=== PATIENT | male | born 1950 | race Caucasian/White ===

== ENCOUNTER → 2016-05-01 | Outpatient (CLI) | payer BC ==
--- NOTE | 2016-05-02 09:08 | MR ---
EXAMINATION: MRI lumbar spine HISTORY: Intravertebral disc degeneration COMPARISON: Radiographs dated 04/05/2016 TECHNIQUE: Multiplanar and multisequence images obtained of the lumbar spine without contrast. FINDINGS: There is grade 1 anterolisthesis of L3 on L4 otherwise the lumbar spinal alignment appears normal. The vertebral body heights appear maintained. Mild endplate edema is noted from L3 to L5. T he SI joints are symmetric. The distal spinal cord appears normal and the conus terminates at L1-L2. The visualized retroperitoneal structures appear unremarkable. T12-L1: Unremarkable. L1-L2: Small diffuse disc bulge without significant spinal canal stenosis. Minimal left neural raymond inal stenosis. L2-L3: Small diffuse disc bulge with mild facet and ligamentum flavum hypertrophy. Mild bilateral ne ural foraminal stenosis. L3-L4: Large diffuse disc bulge with facet and ligamentum flavum hypertrophy resulting in severe spi nal canal stenosis. Moderate to severe bilateral neural foraminal stenosis is noted. L4-L5: Small diffuse disc bulge with significant spinal canal stenosis. There is moderate left and m ild right neural foraminal stenosis. L5-S1: Small diffuse disc bulge without significant spinal canal stenosis. Moderate to severe bilate ral neural foraminal stenosis. IMPRESSION: 1. Multilevel degenerative disc disease most notable at L3-L4 with severe spinal canal stenosis. Ind ividual details above.
== END ==
LOC: MW.MRI 14:15
PROVIDERS: ATTEND Internal Medicine
DX: M51.36 Other intervertebral disc degeneration, lumbar region (principal); M48.06 Spinal stenosis, lumbar region
CPT/HCPCS: 72148; 72148-26

== ENCOUNTER 2016-05-08 09:43 | Day surgery (SDC) | payer BC ==
[~2016-05-08 09:43] MED LIST: Lactated Ringers 1,000 ML IV SCH; Midazolam 1 MG/ML 2 ML SDV ONE; Propofol 200 MG/20 ML SDV ONE; fentaNYL 100 MCG/2 ML SDV ONE
--- NOTE | 2016-05-08 10:18 | PCM.PREANE ---
Preanesthetic Assessment - ANESTHESIA/TRANSFUSION/FAMILY HX Anesthesia/Transfusion History: Prior Anesthesia Family History of Anesthesia Reaction: No - REVIEW OF SYSTEMS Constitutional: Reports: no symptoms TREASURER: Reports: no symptoms Respiratory: Reports: no symptoms Cardiovascular: Reports: no symptoms GI: Reports: no symptoms - PHYSICAL ASSESSMENT O2 Sat by Pulse Oximetry: 98 RR: 16 Vital Signs: Last Vital Signs Temp 36.6 C 05/08/16 09:59 Pulse 78 05/08/16 09:59 Resp 16 05/08/16 09:59 BP 107/72 05/08/16 09:59 Pulse Ox 98 05/08/16 09:59 Height: 1.78 m Weight: 87.09 kg ASA Class: 2 Mental Status: alert & oriented x3 Airway Class: Mallampati = 2 ROM/Head Extension: full Respiratory Status: lungs clear to auscultation bilaterally Cardiovascular Status: regular rate & rhythm, normal S1, S2 - ALLERGIES Allergies/Adverse Reactions: Allergies Allergy/AdvReac Type Severity Reaction Status Date / Time No Known Allergies Allergy Verified 05/03/16 09:25 - BLOOD Blood Available: No - ANESTHESIA PLAN Preop Beta Elma: No Anesthesia Type Planned: MAC - ACKNOWLEDGEMENTS Pt an appropriate candidate for the planned anesthesia: Yes Alternatives and risks of anesthesia discussed w pt/guardian: Yes Pt/Guardian understands and agree with anesthesia plan: Yes PreAnesthesia Questionnaire Cardiovascular History: Reports: Hypertension Musculoskeletal History: Reports: Arthritis, Back pain, chronic Neurological History: Reports: Other (see below) Other Neuro History: neurogenic claudication - Past Surgical History Head Surgeries/Procedures: Reports: None Neurological Surgical History: Reports: Lumbar spine Other Neurological Surgeries/Procedures: hx back surgery for ruptured disc - SUBSTANCE USE Smoking Status *Q: Former Smoker Tobacco Use Within Last Twelve Months: No Recreational Drug Use History: No - HOME MEDS Home Medications: Home Meds Celecoxib 200 mg PO DAILY 05/03/16 [History] Lisinopril/Hydrochlorothiazide [Lisinopril-Hctz 20-25 mg Tab] 1 tab PO DAILY 03/21 [History] traMADol HCl [Tramadol HCl] 1 tab PO BID PRN 05/03/16 [History] - CURRENT (IN HOUSE) MEDS Current Meds: Current Medications Lactated Ringer's (Ringers, Lactated) 1,000 mls @ 125 mls/hr IV ASDIRECTED ANDREIA Last Admin: 05/08/16 10:00 Dose: 125 mls/hr Discontinued Medications Fentanyl (Sublimaze) Confirm Administered Dose 100 mcg .ROUTE .STK-MED ONE Stop: 05/08/16 08:22 Midazolam HCl (Versed 1 Mg/Ml) Confirm Administered Dose 2 mg .ROUTE .STK-MED ONE Stop: 05/08/16 08:22 Propofol (Diprivan 20 Ml) Confirm Administered Dose 400 mg .ROUTE .STK-MED ONE Stop: 05/08/16 08:22
--- NOTE | 2016-05-08 12:13 | PCM.OPNOTE ---
- General Post-Op/Procedure Note Date of Surgery/Procedure: 05/08/16 Operative Procedure(s): Colonoscopy Pre Op Diagnosis: Desire for colorectal cancer screening Post-Op Diagnosis: Minimal sigmoid diverticulosis Anesthesia Technique: MAC (ASA II) Primary Surgeon: Faisal Santiago State Fire Marshal: Louise Ansari Condition: Good Free Text/Narrative:: Dictation [id number]
--- NOTE | 2016-05-08 12:14 | PCM.POSTAN ---
POST ANESTHESIA ASSESSMENT - MENTAL STATUS Mental Status: alert, oriented - RESPIRATORY Respiratory Status: respiratory rate WNL - CARDIOVASCULAR CV Status: pulse rate WNL - GASTROINTESTINAL GI Status: no symptoms - POST OP HYDRATION Hydration Status: adequate & stable
[2016-05-08] MEDS ORDERED: Lactated Ringers 1,000 ML IV SCH (12:15)
--- NOTE | 2016-05-08 12:15 | PCM48HPAN ---
Post Anesthesia Note - EVALUATION WITHIN 48HRS OF ANESTHETIC Vital Signs in Normal Range: Yes Patient Participated in Evaluation: Yes Respiratory Function Stable: Yes Airway Patent: Yes Cardiovascular Function Stable: Yes Hydration Status Stable: Yes Pain Control Satisfactory: Yes Nausea and Vomiting Control Satisfactory: Yes Mental Status Recovered: Yes
[2016-05-08 12:55] VITALS: BP 81/60
--- NOTE | 2016-05-08 20:05 | OR ---
SURGEON: Faisal Santiago M.D. DATE OF PROCEDURE: 05/08/2016 OPERATION PERFORMED: Colonoscopy. ANESTHESIA: MAC. ASA CLASSIFICATION: II. VENTILATION WORKER: Dr. Ansari. PREOPERATIVE DIAGNOSIS: Desire for colorectal cancer screening. POSTOPERATIVE DIAGNOSES: 1. No evidence of neoplasia. 2. Mild sigmoid diverticulosis. DESCRIPTION OF PROCEDURE: The patient was taken to the endoscopy room, positioned on the endoscopy table in the left lateral decubitus position. Time-out was called for appropriate identification of the patient and procedure. Monitored anesthesia care was provided. The colonoscope was inserted into the rectum and advanced with minimal difficulty to the cecum where the colonoscope was retroflexed to visualize the ascending colon from below. The colonoscope was then straightened and slowly withdrawn. Cecum was identified by internal landmarks and external pressure. The cecum, ascending colon, hepatic flexure, transverse colon, splenic flexure, descending colon, and sigmoid colon showed no tumors, polyps, diverticula, or angiodysplasia. A couple of small diverticula were noted in the sigmoid colon. No stricture, spasm, or bleeding was noted. No sigmoid polyps were encountered. Once the colonoscope was withdrawn to the rectum, it was retroflexed to visualize the anal orifice from above. No tumors, polyps, or acute hemorrhoidal changes were noted. There were some minor chronic changes. The colonoscope was then straightened, the rectum aspirated, and the colonoscope removed. The patient tolerated the procedure well and was taken to recovery room in stable condition. ZOFIA / IMTIAZ /[id number]
== END 2016-05-08 13:10 | disposition home or self-care (01) ==
LOC: MW.SDS 09:43
PROVIDERS: ATTEND Surgery
PROC: 0DJD8ZZ Inspection of Lower Intestinal Tract, Via Natural or Artificial Opening Endoscopic (ICD-10-PCS; principal; 2016-05-08)
DX: Z12.11 Encounter for screening for malignant neoplasm of colon (principal); K57.30 Diverticulosis of large intestine without perforation or abscess without bleeding; K64.9 Unspecified hemorrhoids; G89.29 Other chronic pain; M54.9 Dorsalgia, unspecified; M51.36 Other intervertebral disc degeneration, lumbar region; I10 Essential (primary) hypertension; Z79.899 Other long term (current) drug therapy; Z98.890 Other specified postprocedural states; Z87.891 Personal history of nicotine dependence
CPT/HCPCS: 45378; J2250; J3010; J7120; J2704

== ENCOUNTER → 2016-07-19 | Outpatient (CLI) | payer BC ==
--- NOTE | 2016-07-19 13:09 | CR ---
EXAMINATION: Lumbar spine HISTORY: Back pain COMPARISON: MRI dated 05/01/2016 TECHNIQUE: Flexion and extension lateral images FINDINGS: There is grade 1 anterolisthesis of L3 on L4 most prominent with flexion. Otherwise the pablo mbar spinal alignment appears normal. The vertebral body heights are grossly maintained. Moderate fa cet hypertrophy is noted extending from L3 to S1. No fracture or acute osseous abnormality. Bone min eralization appears normal to osteopenic. IMPRESSION: Moderate degenerative changes with grade 1 anterolisthesis of L3 on L4.
== END ==
LOC: MW.DI 08:27
PROVIDERS: ATTEND Neurological Surgery
DX: M54.5 Low back pain (principal); M47.816 Spondylosis without myelopathy or radiculopathy, lumbar region
CPT/HCPCS: 72100; 72100-26

== ENCOUNTER 2017-09-01 17:16 | Observation (INO) | payer BC, OTHER ==
[2017-09-01] MEDS ORDERED: Famotidine 20 MG/2 ML SDV IVPUSH ONE (17:25)
[2017-09-01] MEDS ORDERED: Aspirin 81 MG Tab.Chew PO ONE (17:25)
[2017-09-01] MEDS ORDERED: Sodium Chloride 0.9% 2.5 ML Syringe FLUSH PRN (17:25)
[2017-09-01] MEDS ORDERED: Nitroglycerin 0.4 MG Tab.SL SL ONE (17:25)
[2017-09-01] MEDS ORDERED: Sodium Chloride 0.9% 10 ML Syringe FLUSH PRN (17:25)
[2017-09-01] MEDS ORDERED: Sodium Chloride 0.9% 1,000 ML IV ONE (17:25)
--- NOTE | 2017-09-01 17:28 | EDM.PDOC ---
ED HPI GENERAL MEDICAL PROBLEM - General Chief Complaint: Chest Pain Stated Complaint: CHEST PAIN Time Seen by Provider: 09/01/17 17:25 Source of Information: Reports: Patient History Limitations: Reports: No Limitations - History of Present Illness INITIAL COMMENTS - FREE TEXT/NARRATIVE: HISTORY AND PHYSICAL: []66-year-old male presenting with chest pain that is midsternal History of Present Illness: []Patient stated this pain started this morning he took one nitroglycerin without any relief when he took a second nitroglycerin about 20 minutes later he had some relief has a headache from the nitroglycerin. He just feels fatigued now. Perhaps an ache. Pain at worst was a 4/10 now maybe 1. Review of Systems: As per history of present illness and below otherwise all systems reviewed and negative. Past medical history: As per history of present illness and as reviewed below otherwise noncontributory. Surgical history: As per history of present illness and as reviewed below otherwise noncontributory. Social history: No reported history of drug or alcohol abuse. Family history: As per history of present illness and as reviewed below otherwise noncontributory. Physical exam: Alert and oriented man answers questions appropriately in full sentences no shortness breath noted on examination. Nontoxic in appearance HEENT: Atraumatic, normocehpalic, pupils reactive, negative for conjunctival pallor or scleral icterus, mucous membranes moist, throat clear, neck supple, nontender, trachea midline. Lungs: Clear to auscultation, breath sounds equal bilaterally, chest non tender. Heart: S1S2, regular, negative for clicks, rubs, or JVD. Abdomen: Soft, nondistended, nontender. Negative for masses or hepatossplenmegaly. Negative for costovertebral tenderness. Pelvis: Stable nontender. Genitourinary: Deferred. Rectal: Deferred Extremities: Atraumatic, negative for cords or calf pain. Neurovascular unremarkable. Neuro: Awake, alert, oriented. Cranial nerves II through XII unremarkable. Cerebellum unremarkable. Motor and sensory unremarkable throughout. Exam nonfocal. is at bedside. Discussed case with Dr. Cannon who accepted patient for observation on telemetry unit and creatinine are elevated from one year ago Diagnostics: []CBC CMP troponin amylase lipase PT/INR chest x-ray Therapeutics: []1 L normal saline Nitro-Bid Impression: []Chest pain Renal injury Plan: []Refer to observation Definitive disposition and diagnosis as appropriate pending reevaluation and review of above. Onset: Today, Sudden Duration: Hour(s): Location: Reports: Chest Quality: Reports: Ache Severity: Moderate Improves with: Reports: None Worsens with: Reports: None Associated Symptoms: Reports: Chest Pain Chest Pain Score (Numeric/FACES): 4 - Related Data Allergies Allergy/AdvReac Type Severity Reaction Status Date / Time No Known Allergies Allergy Verified 05/03/16 09:25 Home Meds: Home Meds Celecoxib 200 mg PO DAILY 05/03/16 [History] Lisinopril/Hydrochlorothiazide [Lisinopril-Hctz 20-25 mg Tab] 1 tab PO DAILY 03/21 [History] traMADol HCl [Tramadol HCl] 1 tab PO BID PRN 05/03/16 [History] Past Medical History Cardiovascular History: Reports: Hypertension Musculoskeletal History: Reports: Arthritis, Back Pain, Chronic Neurological History: Reports: Other (See Below) Other Neuro History: neurogenic claudication - Past Surgical History Neurological Surgical History: Reports: Lumbar Spine ED ROS GENERAL - Review of Systems Review Of Systems: ROS reveals no pertinent complaints other than HPI. ED EXAM, GENERAL - Physical Exam Exam: See Below (See dictation) EKG INTERPRETATION EKG Date: 09/01/17 Rhythm: NSR Comparison: No Change Course - Vital Signs Last Recorded V/S: Last Vital Signs Temp 36.1 C 09/01/17 17:24 Pulse 98 09/01/17 17:24 Resp 18 09/01/17 17:24 BP 105/65 09/01/17 17:24 Pulse Ox 96 09/01/17 17:25 - Orders/Labs/Meds Orders: Active Orders 24 hr Category Date Time Status Patient Status [ADT] Stat ADT 09/01/17 19:02 Ordered Cardiac Monitoring [RC] . DIRECTED Care 09/01/17 17:25 Active EKG Documentation Completion [RC] STAT Care 09/01/17 17:26 Active Oxygen Therapy [RC] ASDIRECTED Care 09/01/17 17:25 Active Chest 1V Frontal [CR] Stat Exams 09/01/17 17:25 Taken INR,PT,PROTHROMBIN TIME [COAG] Stat Lab 09/01/17 17:41 Received UA W/MICROSCOPIC [URIN] Stat Lab 09/01/17 17:25 Ordered Sodium Chloride 0.9% [Saline Flush] Med 09/01/17 17:25 Active 10 ml FLUSH ASDIRECTED PRN Sodium Chloride 0.9% [Saline Flush] Med 09/01/17 17:25 Active 2.5 ml FLUSH ASDIRECTED PRN Saline Lock Insert [OM.PC] Stat Oth 09/01/17 17:25 Ordered Medication Orders Sodium Chloride (Saline Flush) 10 ml FLUSH ASDIRECTED PRN PRN Reason: Keep Vein Open Last Admin: 09/01/17 17:47 Dose: 10 ml Sodium Chloride (Saline Flush) 2.5 ml FLUSH ASDIRECTED PRN PRN Reason: Keep Vein Open Last Admin: 09/01/17 17:47 Dose: 2.5 ml Labs: Laboratory Tests 09/01/17 09/01/17 Range/Units 17:41 17:41 WBC 6.93 (4.0-11.0) K/uL RBC 3.99 L (4.50-5.90) M/uL Hgb 11.9 L (13.0-17.0) g/dL Hct 35.8 L (38.0-50.0) % MCV 89.7 (80.0-98.0) fL MCH 29.8 (27.0-32.0) pg MCHC 33.2 (31.0-37.0) g/dL RDW Std Deviation 42.9 (28.0-62.0) fl RDW Coeff of Mela 13 (11.0-15.0) % Plt Count 244 (150-400) K/uL MPV 9.40 (7.40-12.00) fL Neut % (Auto) 68.2 (48.0-80.0) % Lymph % (Auto) 23.2 (16.0-40.0) % Beaver % (Auto) 5.5 (0.0-15.0) % Eos % (Auto) 2.7 (0.0-7.0) % Baso % (Auto) 0.4 (0.0-1.5) % Neut # (Auto) 4.7 (1.4-5.7) K/uL Lymph # (Auto) 1.6 (0.6-2.4) K/uL Beaver # (Auto) 0.4 (0.0-0.8) K/uL Eos # (Auto) 0.2 (0.0-0.7) K/uL Baso # (Auto) 0.0 (0.0-0.1) K/uL Nucleated RBC % 0.0 /100WBC Nucleated RBCs # 0 K/uL Sodium 141 (136-148) mmol/L Potassium 4.3 (3.5-5.1) mmol/L Chloride 105 (98-107) mmol/L Carbon Dioxide 24.7 (21.0-32.0) mmol/L BUN 59 H (7.0-18.0) mg/dL Creatinine 3.2 H (0.8-1.3) mg/dL Est Cr Clr Drug Dosing 24.08 mL/min Estimated GFR (MDRD) 19.7 ml/min Glucose 160 H (74-106) mg/dL Calcium 9.0 (8.5-10.1) mg/dL Total Bilirubin 0.6 (0.2-1.0) mg/dL AST 16 (15-37) IU/L ALT 28 (14-63) IU/L Alkaline Phosphatase 51 (46-116) U/L Troponin I < 0.050 (0.000-0.056) ng/mL Total Protein 6.8 (6.4-8.2) g/dL Albumin 3.9 (3.4-5.0) g/dL Globulin 2.9 (2.0-3.5) g/dL Albumin/Globulin Ratio 1.3 (1.3-2.8) Amylase 50 (25-115) U/L Lipase 274 (73-393) U/L Meds: Medications Generic Name Dose Route Start Last Admin Trade Name Freq PRN Reason Stop Dose Admin Sodium Chloride 10 ml 09/01/17 17:25 09/01/17 17:47 Saline Flush FLUSH 10 ml ASDIRECTED PRN Administration Keep Vein Open Sodium Chloride 2.5 ml 09/01/17 17:25 09/01/17 17:47 Saline Flush FLUSH 2.5 ml ASDIRECTED PRN Administration Keep Vein Open Discontinued Medications Generic Name Dose Route Start Last Admin Trade Name Freq PRN Reason Stop Dose Admin Acetaminophen 650 mg 09/01/17 17:51 09/01/17 17:54 Tylenol PO 09/01/17 17:52 Not Given NOW ONE Aspirin 324 mg 09/01/17 17:25 09/01/17 17:46 Aspirin PO 09/01/17 17:26 324 mg ONETIME ONE Administration Famotidine 20 mg 09/01/17 17:25 09/01/17 17:46 Pepcid IVPUSH 09/01/17 17:26 20 mg ONETIME ONE Administration Sodium Chloride 1,000 mls @ 999 mls/hr 09/01/17 17:25 09/01/17 17:46 Normal Saline IV 09/01/17 18:25 999 mls/hr .Bolus ONE Administration Nitroglycerin 0.4 mg 09/01/17 17:25 Nitrostat SL 09/01/17 17:26 ONETIME ONE Nitroglycerin 1 gm 09/01/17 17:47 09/01/17 17:53 Nitro-Bid 2% TOP 09/01/17 17:48 1 gm ONETIME ONE Administration Departure - Departure Time of Disposition: 19:05 Disposition: Refer to Observation Condition: Good Clinical Impression: Chest pain Qualifiers: Chest pain type: unspecified Qualified Code(s): R07.9 - Chest pain, unspecified Renal injury Qualifiers: Encounter type: initial encounter Laterality: unspecified laterality Qualified Code(s): S37.009A - Unspecified injury of unspecified kidney, initial encounter Referrals: PCP,None [Primary Care Provider] - Forms: ED Department Discharge - My Orders Last 24 Hours: My Active Orders 09/01/17 17:25 Cardiac Monitoring [RC] . DIRECTED Oxygen Therapy [RC] ASDIRECTED Chest 1V Frontal [CR] Stat UA W/MICROSCOPIC [URIN] Stat Sodium Chloride 0.9% [Saline Flush] 10 ml FLUSH ASDIRECTED PRN Sodium Chloride 0.9% [Saline Flush] 2.5 ml FLUSH ASDIRECTED PRN Saline Lock Insert [OM.PC] Stat 09/01/17 17:26 EKG Documentation Completion [RC] STAT 09/01/17 17:41 INR,PT,PROTHROMBIN TIME [COAG] Stat 09/01/17 19:02 Patient Status [ADT] Stat - Assessment/Plan Last 24 Hours: My Active Orders 09/01/17 17:25 Cardiac Monitoring [RC] . DIRECTED Oxygen Therapy [RC] ASDIRECTED Chest 1V Frontal [CR] Stat UA W/MICROSCOPIC [URIN] Stat Sodium Chloride 0.9% [Saline Flush] 10 ml FLUSH ASDIRECTED PRN Sodium Chloride 0.9% [Saline Flush] 2.5 ml FLUSH ASDIRECTED PRN Saline Lock Insert [OM.PC] Stat 09/01/17 17:26 EKG Documentation Completion [RC] STAT 09/01/17 17:41 INR,PT,PROTHROMBIN TIME [COAG] Stat 09/01/17 19:02 Patient Status [ADT] Stat
[2017-09-01] MEDS ORDERED: Nitroglycerin 2% Oint 1 GM UD Packet TOP ONE (17:47)
[2017-09-01] MEDS ORDERED: Acetaminophen 325 MG Tab PO ONE (17:51)
[2017-09-01 18:10] LABS: CHLORIDE,CL 105 mmol/L (98-107); SODIUM,NA 141 mmol/L (136-148)
--- NOTE | 2017-09-01 20:12 | PCM.HP ---
H&P History of Present Illness - General Date of Service: 09/01/17 Admit Problem/Dx: Admission Diagnosis/Problem Admission Diagnosis/Problem Chest pain - History of Present Illness Initial Comments - Free Text/Narative: 66 yo male with pmh of HTN who woke up this morning with fatigue and mild chest disomfort. The sensation lasted a few hours. 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 The pain had gone away but he took two nitros to see if it would help his fatigue. He then went to the ED. Initial EKG and cardiac enzymes did not show signs of ischemia. His creatinine was 3.2 and BUN 59. His renal function was normal 8 months ago. He reports chronic back pain which he takes daily tramadol and an occasional aleve. He denies any overexertion or exposure to heat at work and reports he drinks plenty of water. Chest Pain Score (Numeric/FACES): 4 - Related Data Allergies/Adverse Reactions: Allergies Allergy/AdvReac Type Severity Reaction Status Date / Time No Known Allergies Allergy Verified 05/03/16 09:25 Home Medications: Home Meds traMADol HCl [Tramadol HCl] 1 tab PO Q6H PRN 05/03/16 [History] Past Medical History Cardiovascular History: Reports: Hypertension Musculoskeletal History: Reports: Arthritis, Back Pain, Chronic Neurological History: Reports: Other (See Below) Other Neuro History: neurogenic claudication - Past Surgical History Neurological Surgical History: Reports: Lumbar Spine Social & Family History - Family History Family Medical History: Noncontributory - Tobacco Use Smoking Status *Q: Never Smoker - Caffeine Use Caffeine Use: Reports: Coffee - Alcohol Use Days Per Week of Alcohol Use: 1 Number of Drinks Per Day: 1 Total Drinks Per Week: 1 - Recreational Drug Use Recreational Drug Use: No H&P Review of Systems - Review of Systems: Review Of Systems: ROS reveals no pertinent complaints other than HPI. Exam - Exam Exam: See Below - Vital Signs Vital Signs: Last Vital Signs Temp 35.8 C 09/01/17 19:46 Pulse 18 L 09/01/17 19:46 Resp 18 09/01/17 19:46 BP 123/85 09/01/17 19:59 Pulse Ox 100 09/01/17 19:46 Weight: 74.843 kg - Exam General: Alert, Oriented HEENT: Conjunctiva Clear Lungs: Clear to Auscultation, Normal Respiratory Effort Cardiovascular: Regular Rate, Regular Rhythm GI/Abdominal Exam: Normal Bowel Sounds, Soft, Non-Tender Skin: Warm, Dry, Intact - Patient Data Lab Results Last 24 hrs: Laboratory Results - last 24 hr 09/01/17 09/01/17 09/01/17 Range/Units 17:41 17:41 17:41 WBC 6.93 (4.0-11.0) K/uL RBC 3.99 L (4.50-5.90) M/uL Hgb 11.9 L (13.0-17.0) g/dL Hct 35.8 L (38.0-50.0) % MCV 89.7 (80.0-98.0) fL MCH 29.8 (27.0-32.0) pg MCHC 33.2 (31.0-37.0) g/dL RDW Std Deviation 42.9 (28.0-62.0) fl RDW Coeff of Mela 13 (11.0-15.0) % Plt Count 244 (150-400) K/uL MPV 9.40 (7.40-12.00) fL Neut % (Auto) 68.2 (48.0-80.0) % Lymph % (Auto) 23.2 (16.0-40.0) % [place] % (Auto) 5.5 (0.0-15.0) % Eos % (Auto) 2.7 (0.0-7.0) % Baso % (Auto) 0.4 (0.0-1.5) % Neut # (Auto) 4.7 (1.4-5.7) K/uL Lymph # (Auto) 1.6 (0.6-2.4) K/uL [place] # (Auto) 0.4 (0.0-0.8) K/uL Eos # (Auto) 0.2 (0.0-0.7) K/uL Baso # (Auto) 0.0 (0.0-0.1) K/uL Nucleated RBC % 0.0 /100WBC Nucleated RBCs # 0 K/uL INR 1.08 Sodium 141 (136-148) mmol/L Potassium 4.3 (3.5-5.1) mmol/L Chloride 105 (98-107) mmol/L Carbon Dioxide 24.7 (21.0-32.0) mmol/L BUN 59 H (7.0-18.0) mg/dL Creatinine 3.2 H (0.8-1.3) mg/dL Est Cr Clr Drug Dosing 24.08 mL/min Estimated GFR (MDRD) 19.7 ml/min Glucose 160 H (74-106) mg/dL Calcium 9.0 (8.5-10.1) mg/dL Total Bilirubin 0.6 (0.2-1.0) mg/dL AST 16 (15-37) IU/L ALT 28 (14-63) IU/L Alkaline Phosphatase 51 (46-116) U/L Troponin I < 0.050 (0.000-0.056) ng/mL Total Protein 6.8 (6.4-8.2) g/dL Albumin 3.9 (3.4-5.0) g/dL Globulin 2.9 (2.0-3.5) g/dL Albumin/Globulin Ratio 1.3 (1.3-2.8) Amylase 50 (25-115) U/L Lipase 274 (73-393) U/L Urine Color Urine Appearance Urine pH (5.0-8.0) Ur Specific [place] (1.001-1.035) Urine Protein (NEGATIVE) mg/dL Urine Glucose (UA) (NEGATIVE) mg/dL Urine Ketones (NEGATIVE) mg/dL Urine Occult Blood (NEGATIVE) Urine Nitrite (NEGATIVE) Urine Bilirubin (NEGATIVE) Urine Urobilinogen (<2.0) EU/dL Ur Leukocyte Esterase (NEGATIVE) Urine RBC (0-2/HPF) Urine WBC (0-5/HPF) Ur Epithelial Cells (NONE-FEW) Urine Bacteria (NEGATIVE) 09/01/17 Range/Units 18:40 WBC (4.0-11.0) K/uL RBC (4.50-5.90) M/uL Hgb (13.0-17.0) g/dL Hct (38.0-50.0) % MCV (80.0-98.0) fL MCH (27.0-32.0) pg MCHC (31.0-37.0) g/dL RDW Std Deviation (28.0-62.0) fl RDW Coeff of Mela (11.0-15.0) % Plt Count (150-400) K/uL MPV (7.40-12.00) fL Neut % (Auto) (48.0-80.0) % Lymph % (Auto) (16.0-40.0) % Union % (Auto) (0.0-15.0) % Eos % (Auto) (0.0-7.0) % Baso % (Auto) (0.0-1.5) % Neut # (Auto) (1.4-5.7) K/uL Lymph # (Auto) (0.6-2.4) K/uL [place] # (Auto) (0.0-0.8) K/uL Eos # (Auto) (0.0-0.7) K/uL Baso # (Auto) (0.0-0.1) K/uL Nucleated RBC % /100WBC Nucleated RBCs # K/uL INR Sodium (136-148) mmol/L Potassium (3.5-5.1) mmol/L Chloride (98-107) mmol/L Carbon Dioxide (21.0-32.0) mmol/L BUN (7.0-18.0) mg/dL Creatinine (0.8-1.3) mg/dL Est Cr Clr Drug Dosing mL/min Estimated GFR (MDRD) ml/min Glucose (74-106) mg/dL Calcium (8.5-10.1) mg/dL Total Bilirubin (0.2-1.0) mg/dL AST (15-37) IU/L ALT (14-63) IU/L Alkaline Phosphatase (46-116) U/L Troponin I (0.000-0.056) ng/mL Total Protein (6.4-8.2) g/dL Albumin (3.4-5.0) g/dL Globulin (2.0-3.5) g/dL Albumin/Globulin Ratio (1.3-2.8) Amylase (25-115) U/L Lipase (73-393) U/L Urine Color YELLOW Urine Appearance CLEAR Urine pH 5.5 (5.0-8.0) Ur Specific [place] 1.025 (1.001-1.035) Urine Protein NEGATIVE (NEGATIVE) mg/dL Urine Glucose (UA) NEGATIVE (NEGATIVE) mg/dL Urine Ketones NEGATIVE (NEGATIVE) mg/dL Urine Occult Blood NEGATIVE (NEGATIVE) Urine Nitrite NEGATIVE (NEGATIVE) Urine Bilirubin NEGATIVE (NEGATIVE) Urine Urobilinogen 0.2 (<2.0) EU/dL Ur Leukocyte Esterase NEGATIVE (NEGATIVE) Urine RBC 0-1 (0-2/HPF) Urine WBC 0-2 (0-5/HPF) Ur Epithelial Cells RARE (NONE-FEW) Urine Bacteria FEW (NEGATIVE) Result Diagrams: 09/02/17 06:12 09/03/17 07:20 Problem List Initiated/Reviewed/Updated: Yes Orders Last 24hrs: Active Orders 24 hr Category Date Time Status Patient Status [ADT] Stat ADT 09/01/17 19:02 Active Cardiac Monitoring [RC] . DIRECTED Care 09/01/17 17:25 Active Oxygen Therapy [RC] PRN Care 09/01/17 20:06 Ordered Up ad Eveline [RC] ASDIRECTED Care 09/01/17 20:06 Ordered VTE/DVT Education [RC] PER UNIT ROUTINE Care 09/01/17 20:06 Ordered Vital Signs [RC] Q4H Care 09/01/17 20:06 Ordered Regular Diet [DIET] Diet 09/01/17 Breakfast Ordered Chest 1V Frontal [CR] Stat Exams 09/01/17 17:25 Taken BASIC METABOLIC PANEL,BMP [CHEM] AM Lab 09/02/17 05:11 Ordered CBC W/O DIFF,HEMOGRAM [HEME] AM Lab 09/02/17 05:11 Ordered UA W/MICROSCOPIC [URIN] Stat Lab 09/01/17 18:40 Ordered Sodium Chloride 0.9% [Saline Flush] Med 09/01/17 17:25 Active 10 ml FLUSH ASDIRECTED PRN Sodium Chloride 0.9% [Saline Flush] Med 09/01/17 17:25 Active 2.5 ml FLUSH ASDIRECTED PRN Saline Lock Insert [OM.PC] Stat Oth 09/01/17 17:25 Ordered Sequential Compression Device [OM.PC] Per Unit Routine Oth 09/01/17 20:06 Ordered Resuscitation Status Routine Resus Stat 09/01/17 20:06 Ordered Medication Orders Sodium Chloride (Saline Flush) 10 ml FLUSH ASDIRECTED PRN PRN Reason: Keep Vein Open Last Admin: 09/01/17 17:47 Dose: 10 ml Sodium Chloride (Saline Flush) 2.5 ml FLUSH ASDIRECTED PRN PRN Reason: Keep Vein Open Last Admin: 09/01/17 17:47 Dose: 2.5 ml Assessment/Plan Comment:: 66 yo male who presents with one day history of fatigue and brief episode of mild chest discomfort. He was discovered to have kidney disease with a creatinine of 3.2 and BUN of 59. We will rule out acute coronary syndrome with serial cardiac enzymes. We will hydrate with IV fluids. Will check FENA.
[2017-09-01] MEDS: Sodium Chloride 0.9% 1,000 ML IV SCH (20:36)
[2017-09-02] MEDS: Sodium Chloride 0.9% 1,000 ML IV SCH ×4 (03:06→22:14)
--- NOTE | 2017-09-02 09:14 | PCM.PN ---
- General Info Date of Service: 09/02/17 - Review of Systems Systems Review Comment:: fatigue improved no chest pain. - Patient Data Vitals - Most Recent: Last Vital Signs Temp 37.3 C 09/02/17 08:00 Pulse 63 09/02/17 08:00 Resp 16 09/02/17 08:00 BP 102/68 09/02/17 08:00 Pulse Ox 98 09/02/17 08:00 Weight - Most Recent: 73.845 kg I&O - Last 24 Hours: Intake & Output 09/01/17 09/02/17 09/02/17 22:59 06:59 14:59 Intake Total 1280 Output Total 500 Balance 780 Lab Results Last 24 Hours: Laboratory Results - last 24 hr 09/01/17 09/01/17 09/01/17 Range/Units 17:41 17:41 17:41 WBC 6.93 (4.0-11.0) K/uL RBC 3.99 L (4.50-5.90) M/uL Hgb 11.9 L (13.0-17.0) g/dL Hct 35.8 L (38.0-50.0) % MCV 89.7 (80.0-98.0) fL MCH 29.8 (27.0-32.0) pg MCHC 33.2 (31.0-37.0) g/dL RDW Std Deviation 42.9 (28.0-62.0) fl RDW Coeff of Mela 13 (11.0-15.0) % Plt Count 244 (150-400) K/uL MPV 9.40 (7.40-12.00) fL Neut % (Auto) 68.2 (48.0-80.0) % Lymph % (Auto) 23.2 (16.0-40.0) % [place] % (Auto) 5.5 (0.0-15.0) % Eos % (Auto) 2.7 (0.0-7.0) % Baso % (Auto) 0.4 (0.0-1.5) % Neut # (Auto) 4.7 (1.4-5.7) K/uL Lymph # (Auto) 1.6 (0.6-2.4) K/uL [place] # (Auto) 0.4 (0.0-0.8) K/uL Eos # (Auto) 0.2 (0.0-0.7) K/uL Baso # (Auto) 0.0 (0.0-0.1) K/uL Nucleated RBC % 0.0 /100WBC Nucleated RBCs # 0 K/uL INR 1.08 Sodium 141 (136-148) mmol/L Potassium 4.3 (3.5-5.1) mmol/L Chloride 105 (98-107) mmol/L Carbon Dioxide 24.7 (21.0-32.0) mmol/L BUN 59 H (7.0-18.0) mg/dL Creatinine 3.2 H (0.8-1.3) mg/dL Est Cr Clr Drug Dosing 24.08 mL/min Estimated GFR (MDRD) 19.7 ml/min Glucose 160 H (74-106) mg/dL Calcium 9.0 (8.5-10.1) mg/dL Total Bilirubin 0.6 (0.2-1.0) mg/dL AST 16 (15-37) IU/L ALT 28 (14-63) IU/L Alkaline Phosphatase 51 (46-116) U/L Troponin I < 0.050 (0.000-0.056) ng/mL Total Protein 6.8 (6.4-8.2) g/dL Albumin 3.9 (3.4-5.0) g/dL Globulin 2.9 (2.0-3.5) g/dL Albumin/Globulin Ratio 1.3 (1.3-2.8) Amylase 50 (25-115) U/L Lipase 274 (73-393) U/L Urine Color Urine Appearance Urine pH (5.0-8.0) Ur Specific [place] (1.001-1.035) Urine Protein (NEGATIVE) mg/dL Urine Glucose (UA) (NEGATIVE) mg/dL Urine Ketones (NEGATIVE) mg/dL Urine Occult Blood (NEGATIVE) Urine Nitrite (NEGATIVE) Urine Bilirubin (NEGATIVE) Urine Urobilinogen (<2.0) EU/dL Ur Leukocyte Esterase (NEGATIVE) Urine RBC (0-2/HPF) Urine WBC (0-5/HPF) Ur Epithelial Cells (NONE-FEW) Urine Bacteria (NEGATIVE) Ur Random Creatinine mg/dL Ur Random Sodium (40.0-220.0) mmol/L 09/01/17 09/02/17 09/02/17 Range/Units 18:40 00:25 03:05 WBC (4.0-11.0) K/uL RBC (4.50-5.90) M/uL Hgb (13.0-17.0) g/dL Hct (38.0-50.0) % MCV (80.0-98.0) fL MCH (27.0-32.0) pg MCHC (31.0-37.0) g/dL RDW Std Deviation (28.0-62.0) fl RDW Coeff of Mela (11.0-15.0) % Plt Count (150-400) K/uL MPV (7.40-12.00) fL Neut % (Auto) (48.0-80.0) % Lymph % (Auto) (16.0-40.0) % [place] % (Auto) (0.0-15.0) % Eos % (Auto) (0.0-7.0) % Baso % (Auto) (0.0-1.5) % Neut # (Auto) (1.4-5.7) K/uL Lymph # (Auto) (0.6-2.4) K/uL [place] # (Auto) (0.0-0.8) K/uL Eos # (Auto) (0.0-0.7) K/uL Baso # (Auto) (0.0-0.1) K/uL Nucleated RBC % /100WBC Nucleated RBCs # K/uL INR Sodium (136-148) mmol/L Potassium (3.5-5.1) mmol/L Chloride (98-107) mmol/L Carbon Dioxide (21.0-32.0) mmol/L BUN (7.0-18.0) mg/dL Creatinine (0.8-1.3) mg/dL Est Cr Clr Drug Dosing mL/min Estimated GFR (MDRD) ml/min Glucose (74-106) mg/dL Calcium (8.5-10.1) mg/dL Total Bilirubin (0.2-1.0) mg/dL AST (15-37) IU/L ALT (14-63) IU/L Alkaline Phosphatase (46-116) U/L Troponin I < 0.050 (0.000-0.056) ng/mL Total Protein (6.4-8.2) g/dL Albumin (3.4-5.0) g/dL Globulin (2.0-3.5) g/dL Albumin/Globulin Ratio (1.3-2.8) Amylase (25-115) U/L Lipase (73-393) U/L Urine Color YELLOW Urine Appearance CLEAR Urine pH 5.5 (5.0-8.0) Ur Specific [place] 1.025 (1.001-1.035) Urine Protein NEGATIVE (NEGATIVE) mg/dL Urine Glucose (UA) NEGATIVE (NEGATIVE) mg/dL Urine Ketones NEGATIVE (NEGATIVE) mg/dL Urine Occult Blood NEGATIVE (NEGATIVE) Urine Nitrite NEGATIVE (NEGATIVE) Urine Bilirubin NEGATIVE (NEGATIVE) Urine Urobilinogen 0.2 (<2.0) EU/dL Ur Leukocyte Esterase NEGATIVE (NEGATIVE) Urine RBC 0-1 (0-2/HPF) Urine WBC 0-2 (0-5/HPF) Ur Epithelial Cells RARE (NONE-FEW) Urine Bacteria FEW (NEGATIVE) Ur Random Creatinine 69.2 mg/dL Ur Random Sodium 96.0 (40.0-220.0) mmol/L 09/02/17 09/02/17 09/02/17 Range/Units 06:12 06:12 06:12 WBC 5.18 (4.0-11.0) K/uL RBC 3.47 L (4.50-5.90) M/uL Hgb 10.3 L (13.0-17.0) g/dL Hct 31.1 L (38.0-50.0) % MCV 89.6 (80.0-98.0) fL MCH 29.7 (27.0-32.0) pg MCHC 33.1 (31.0-37.0) g/dL RDW Std Deviation 42.9 (28.0-62.0) fl RDW Coeff of Mela 13 (11.0-15.0) % Plt Count 185 (150-400) K/uL MPV 9.30 (7.40-12.00) fL Neut % (Auto) (48.0-80.0) % Lymph % (Auto) (16.0-40.0) % [place] % (Auto) (0.0-15.0) % Eos % (Auto) (0.0-7.0) % Baso % (Auto) (0.0-1.5) % Neut # (Auto) (1.4-5.7) K/uL Lymph # (Auto) (0.6-2.4) K/uL [place] # (Auto) (0.0-0.8) K/uL Eos # (Auto) (0.0-0.7) K/uL Baso # (Auto) (0.0-0.1) K/uL Nucleated RBC % 0.0 /100WBC Nucleated RBCs # 0 K/uL INR Sodium 142 (136-148) mmol/L Potassium 4.5 (3.5-5.1) mmol/L Chloride 110 H (98-107) mmol/L Carbon Dioxide 23.0 (21.0-32.0) mmol/L BUN 50 H (7.0-18.0) mg/dL Creatinine 3.0 H (0.8-1.3) mg/dL Est Cr Clr Drug Dosing 25.69 mL/min Estimated GFR (MDRD) 21.2 ml/min Glucose 128 H (74-106) mg/dL Calcium 8.1 L (8.5-10.1) mg/dL Total Bilirubin (0.2-1.0) mg/dL AST (15-37) IU/L ALT (14-63) IU/L Alkaline Phosphatase (46-116) U/L Troponin I < 0.050 (0.000-0.056) ng/mL Total Protein (6.4-8.2) g/dL Albumin (3.4-5.0) g/dL Globulin (2.0-3.5) g/dL Albumin/Globulin Ratio (1.3-2.8) Amylase (25-115) U/L Lipase (73-393) U/L Urine Color Urine Appearance Urine pH (5.0-8.0) Ur Specific [place] (1.001-1.035) Urine Protein (NEGATIVE) mg/dL Urine Glucose (UA) (NEGATIVE) mg/dL Urine Ketones (NEGATIVE) mg/dL Urine Occult Blood (NEGATIVE) Urine Nitrite (NEGATIVE) Urine Bilirubin (NEGATIVE) Urine Urobilinogen (<2.0) EU/dL Ur Leukocyte Esterase (NEGATIVE) Urine RBC (0-2/HPF) Urine WBC (0-5/HPF) Ur Epithelial Cells (NONE-FEW) Urine Bacteria (NEGATIVE) Ur Random Creatinine mg/dL Ur Random Sodium (40.0-220.0) mmol/L Med Orders - Current: Current Medications Sodium Chloride (Normal Saline) 1,000 mls @ 150 mls/hr IV ASDIRECTED ANDREIA Last Admin: 09/02/17 03:06 Dose: 150 mls/hr Sodium Chloride (Saline Flush) 10 ml FLUSH ASDIRECTED PRN PRN Reason: Keep Vein Open Last Admin: 09/01/17 17:47 Dose: 10 ml Sodium Chloride (Saline Flush) 2.5 ml FLUSH ASDIRECTED PRN PRN Reason: Keep Vein Open Last Admin: 09/01/17 17:47 Dose: 2.5 ml Discontinued Medications Acetaminophen (Tylenol) 650 mg PO NOW ONE Stop: 09/01/17 17:52 Last Admin: 09/01/17 17:54 Dose: Not Given Aspirin (Aspirin) 324 mg PO ONETIME ONE Stop: 09/01/17 17:26 Last Admin: 09/01/17 17:46 Dose: 324 mg Famotidine (Pepcid) 20 mg IVPUSH ONETIME ONE Stop: 09/01/17 17:26 Last Admin: 09/01/17 17:46 Dose: 20 mg Sodium Chloride (Normal Saline) 1,000 mls @ 999 mls/hr IV .Bolus ONE Stop: 09/01/17 18:25 Last Admin: 09/01/17 17:46 Dose: 999 mls/hr Nitroglycerin (Nitrostat) 0.4 mg SL ONETIME ONE Stop: 09/01/17 17:26 Last Admin: 09/01/17 19:59 Dose: Not Given Nitroglycerin (Nitro-Bid 2%) 1 gm TOP ONETIME ONE Stop: 09/01/17 17:48 Last Admin: 09/01/17 17:53 Dose: 1 gm - Exam General: Alert, Oriented Lungs: Clear to Auscultation, Normal Respiratory Effort Cardiovascular: Regular Rate, Regular Rhythm Extremities: No Pedal Edema Skin: Warm, Dry, Intact - Problem List Review Problem List Initiated/Reviewed/Updated: Yes - My Orders Last 24 Hours: My Active Orders 09/01/17 20:06 Up ad Eveline [RC] ASDIRECTED VTE/DVT Education [RC] PER UNIT ROUTINE Vital Signs [RC] Q4H Sequential Compression Device [OM.PC] Per Unit Routine Resuscitation Status Routine 09/01/17 20:30 Sodium Chloride 0.9% [Normal Saline] 1,000 ml IV ASDIRECTED 09/02/17 03:05 CREATININE,URINE RAND [URCHEM] Routine - Plan Plan:: 66 yo male admitted with chest pain and kidney injury. He has ruled out for acute coronary syndrome. We will continue IV hydration and monitor renal function.
[2017-09-03] MEDS: Sodium Chloride 0.9% 1,000 ML IV SCH (04:46)
[2017-09-03 08:54] VITALS: BP 109/63
--- NOTE | 2017-09-03 09:08 | PCM.DCSUM1 ---
Discharge Summary - Discharge Data Discharge Date: 09/03/17 Discharge Disposition: Home, Self-Care 01 Condition: Stable - Patient Summary/Data Hospital Course: 66 yo male who presents with one day history of fatigue and brief episode of mild chest discomfort. He was discovered to have kidney disease with a creatinine of 3.2 and BUN of 59. FENA was 2.8% and renal ultrasound did not show any hydronephrosis. He ruled out for acute coronary syndrome with serial negative troponin's and EKG. He was hydrated with IV fluids and monitored on telemetry with no events. His creatinine remained stable at 2.7. His lisinopril and HCTZ was held and his blood pressure was normal at around 110 systolic. Today patient is requesting discharge home. He was discharge home to have follow up with [facility]. He was told to discontinue his antihypertensive medication and to stop taking NSAIDs. - Patient Instructions Diet: Regular Diet as Tolerated - Discharge Plan Home Medications: Home Meds traMADol HCl [Tramadol HCl] 1 tab PO Q6H PRN 05/03/16 [History] Forms: ED Department Discharge Referrals: PCP,None [Primary Care Provider] - - Patient Data Vitals - Most Recent: Last Vital Signs Temp 36.1 C 09/03/17 08:00 Pulse 61 09/03/17 08:00 Resp 14 09/03/17 08:00 BP 109/63 09/03/17 08:00 Pulse Ox 100 09/03/17 08:00 Weight - Most Recent: 73.845 kg I&O - Last 24 hours: Intake & Output 09/02/17 09/03/17 09/03/17 22:59 06:59 14:59 Intake Total 2279 3166 Output Total 800 1050 Balance 1479 2116 Lab Results - Last 24 hrs: Laboratory Results - last 24 hr 09/03/17 Range/Units 07:20 Sodium 145 (136-148) mmol/L Potassium 4.3 (3.5-5.1) mmol/L Chloride 112 H (98-107) mmol/L Carbon Dioxide 22.6 (21.0-32.0) mmol/L BUN 39 H (7.0-18.0) mg/dL Creatinine 2.7 H (0.8-1.3) mg/dL Est Cr Clr Drug Dosing 28.54 mL/min Estimated GFR (MDRD) 23.9 ml/min Glucose 107 H (74-106) mg/dL Calcium 8.1 L (8.5-10.1) mg/dL Med Orders - Current: Current Medications Sodium Chloride (Normal Saline) 1,000 mls @ 150 mls/hr IV ASDIRECTED ANDREIA Last Admin: 09/03/17 04:46 Dose: 150 mls/hr Sodium Chloride (Saline Flush) 10 ml FLUSH ASDIRECTED PRN PRN Reason: Keep Vein Open Last Admin: 09/01/17 17:47 Dose: 10 ml Sodium Chloride (Saline Flush) 2.5 ml FLUSH ASDIRECTED PRN PRN Reason: Keep Vein Open Last Admin: 09/01/17 17:47 Dose: 2.5 ml Discontinued Medications Acetaminophen (Tylenol) 650 mg PO NOW ONE Stop: 09/01/17 17:52 Last Admin: 09/01/17 17:54 Dose: Not Given Aspirin (Aspirin) 324 mg PO ONETIME ONE Stop: 09/01/17 17:26 Last Admin: 09/01/17 17:46 Dose: 324 mg Famotidine (Pepcid) 20 mg IVPUSH ONETIME ONE Stop: 09/01/17 17:26 Last Admin: 09/01/17 17:46 Dose: 20 mg Sodium Chloride (Normal Saline) 1,000 mls @ 999 mls/hr IV .Bolus ONE Stop: 09/01/17 18:25 Last Admin: 09/01/17 17:46 Dose: 999 mls/hr Nitroglycerin (Nitrostat) 0.4 mg SL ONETIME ONE Stop: 09/01/17 17:26 Last Admin: 09/01/17 19:59 Dose: Not Given Nitroglycerin (Nitro-Bid 2%) 1 gm TOP ONETIME ONE Stop: 09/01/17 17:48 Last Admin: 09/01/17 17:53 Dose: 1 gm
--- NOTE | 2017-09-03 18:10 | CR ---
EXAM DATE: 09/01/17 PATIENT'S AGE: 66 Patient: DIANELYS AUGUST Facility: [place], [place] Site . Site : 1950 Study: XRay Chest [id number]/30/2018 6:02:09 PM Ordering Physician: Doctor English Final Report: INDICATION: Chest pain COMPARISON: none TECHNIQUE: Portable AP erect chest performed at 1800 p.m. FINDINGS: The lungs are clear. There is no evidence of pneumothorax. The heart, mediastinum and pulmonary vessels are of normal size. There is no evidence of pleural fluid. IMPRESSION: Negative chest. Dictated by Joe Bermeo MD @ Sep 01 2017 6:21PM (Electronic Signature) Report Signed by Proxy. WILVER
--- NOTE | 2017-09-03 19:23 | US ---
EXAM DATE: 09/01/17 PATIENT'S AGE: 66 Patient: DIANELYS AUGUST Facility: [place], [place] Site . Site : 1950 Study: US Abdomen [id number]/2/2018 8:14:44 AM Ordering Physician: Kassandra Rodriguez Final Report: INDICATION: Kidney disease TECHNIQUE: Ultrasound renal and bladder complete. Perea-scale and color Doppler sonographic images were acquired of the kidneys and urinary bladder. COMPARISON: None FINDINGS: Right kidney: 10 cm. Left kidney: 10 cm. Normal echotexture and cortex. No masses, stones, or hydronephrosis. Small cortical cyst is in the right kidney. Bladder: Mostly decompressed and otherwise unremarkable. Postvoid bladder volume is 12 mL. IMPRESSION: Unremarkable renal ultrasound. Dictated by Stephen Douglas MD @ Sep 03 2017 8:20AM (Electronic Signature) Report Signed by Proxy. WILVER
== END 2017-09-03 10:25 | disposition home or self-care (01) ==
LOC: MW.ED 17:16 → MW.MS 19:02
PROVIDERS: ADMIT Internal Medicine; ATTEND Internal Medicine
DX: R07.2 Precordial pain (principal); R53.83 Other fatigue; S37.009A Unspecified injury of unspecified kidney, initial encounter; I10 Essential (primary) hypertension; M19.90 Unspecified osteoarthritis, unspecified site; G89.29 Other chronic pain; M54.5 Low back pain
CPT/HCPCS: 36415; 51798; 71045; 76775; 80048; 80053; 81001; 82150; 82570; 83690; 84300; 84484; 85025; 85027; 85610; 93005; 96361; 96374; 99285; A9270; J7040